=== PATIENT | female | born 2000 | race American Indian/Alaskan Native ===

== ENCOUNTER 2019-10-20 00:24 | Emergency (ER) | payer SELFPAY ==
[2019-10-20] MEDS ORDERED: Sodium Chloride 0.9% 1,000 ML IV SCH (00:30)
[2019-10-20] MEDS ORDERED: Ondansetron 4 MG/2 ML SDV IVPUSH ONE (00:38)
--- NOTE | 2019-10-20 00:54 | EDM.PDOCBH ---
ED HPI GENERAL MEDICAL PROBLEM - General Chief Complaint: Drug or Alcohol Abuse Stated Complaint: TL AMBULANCE Time Seen by Provider: 10/20/19 00:25 Source of Information: Reports: Patient, EMS, Family (Mother), Police ([place] [employer]) History Limitations: Reports: Uncooperative (The patient is reluctant to answer questions) - History of Present Illness INITIAL COMMENTS - FREE TEXT/NARRATIVE: Ms. Barrios is a 19-year-old woman with no chronic medical problems and no past surgical history, who is brought in by EMS after they were called due to a being unresponsive in a car. It turns out that the patient and her mother were driving from [place] to [place]. They stopped in [place] to get gas, and the patient's mother tells me that they were talking while the patient ate popcorn. A [place] miles east of [place], the patient stopped talking, her head went forward, and she dropped the popcorn. The patient's mother was unable to get the patient to wake up. She attempted sternal rubs and pressing on the patient's chest, to no avail. She then pulled into a gas station on the east side of [place], where she attempted to perform chest compressions on her daughter, who is still seated upright. Another person at the gas station called 911. The police responded first, finding the patient unresponsive in the car. They tell me that her lips were blue, and she had virtually no palpable pulse. They gave a intranasal Narcan 4 mg, which improved her pulse slightly. A second intranasal Narcan 4 mg was given, which improved her pulse even further. The patient was then pulled out of the car and laid on the ground, and a third intranasal dose of Narcan was given. The community relations police lieutenant told me that about 30 seconds after the third dose, the patient woke up, and had a bounding pulse. EMS told me that the patient was already awake by the time they arrived. They established an IV, but did not give any medications en route to the ED. she remained awake. Here in the ED, the patient's initial BP is found to be elevated at 152/91, otherwise, she is hemodynamically stable, afebrile, saturating 100% on room air. The patient's mother tells me that the patient has no history of drug abuse. The patient acknowledged that she took a "Perc", 30 mg, likely around the time that they stopped in [employer]. The patient acknowledges that she has taken Perc in the past, but denies ever having overdosed previously. She also denies taking anything else tonight, such as other drugs or alcohol. Other than tonight's event, the patient denies recent fever, chills, sore throat, ear pain, nasal or sinus congestion, cough, dyspnea, chest pain, palpitations, nausea, vomiting, constipation, diarrhea, abdominal pain, urinary symptoms, recent weight gain or weight loss, recent bloody bowel movements or black bowel movements, recent joint aches, headaches, or rashes. The patient does not have a PCP. - Related Data Allergies Allergy/AdvReac Type Severity Reaction Status Date / Time No Known Allergies Allergy Verified 10/20/19 00:31 Home Meds: Home Meds . [No Known Home Meds] 10/20/19 [History] Past Medical History - Past Health History Medical/Surgical History: Denies Medical/Surgical History Social & Family History - Tobacco Use Smoking Status *Q: Current Some Day Smoker - Caffeine Use Caffeine Use: Reports: None - Alcohol Use Alcohol Use History: Yes Alcohol Use Frequency: Socially - Recreational Drug Use Recreational Drug Use: Yes Drug Use in Last 12 Months: Yes Recreational Drug Type: Reports: Oxycodone - Living Situation & Occupation Living situation: Reports: Single, Alone Occupation: Employed ([employer]) ED ROS GENERAL - Review of Systems Review Of Systems: Comprehensive ROS is negative, except as noted in HPI. ED EXAM, BEHAVIORAL HEALTH - Physical Exam Exam: See Below Exam Limited By: No Limitations General Appearance: Alert, WD/WN, No Apparent Distress Eye Exam: Bilateral Eye: EOMI, Normal Inspection, PERRL Ears: Normal External Exam, Hearing Grossly Normal Nose: Normal Inspection Throat/Mouth: Normal Inspection, Normal Lips, Normal Voice, No Airway Compromise Head: Atraumatic, Normocephalic Neck: Normal Inspection, Full Range of Motion Respiratory/Chest: No Respiratory Distress, Lungs Clear, Normal Breath Sounds, No Accessory Muscle Use Cardiovascular: Normal Peripheral Pulses, Regular Rate, Rhythm, No Edema, No Gallop, No JVD, No Murmur, No Rub GI/Abdominal: Normal Bowel Sounds, Soft, Non-Tender, No Organomegaly, No Distention, No Abnormal Bruit, No Mass (Female) Exam: Deferred Rectal (Female) Exam: Deferred Back Exam: Normal Inspection, Full Range of Motion, NT Extremities: Normal Inspection, Normal Range of Motion, No Pedal Edema, Normal Capillary Refill Neurological: Alert, Normal Cognition, No Motor/Sensory Deficits, Oriented x 3 Psychiatric: Flat Affect Skin Exam: Warm, Dry, Intact, Normal color, No rash COURSE, BEHAVIORAL HEALTH COMP - Course Vital Signs: Last Vital Signs Temp 36.7 C 10/20/19 00:28 Pulse 99 10/20/19 00:28 Resp 16 10/20/19 00:28 BP 152/91 H 10/20/19 00:28 Pulse Ox 100 10/20/19 00:28 Orders, Labs, Meds: Active Orders 24 hr Category Date Time Status Sodium Chloride 0.9% [Normal Saline] 1,000 ml Med 10/20/19 00:30 Active IV ASDIRECTED Medication Orders Sodium Chloride (Normal Saline) 1,000 mls @ 150 mls/hr IV ASDIRECTED CITLALI Last Admin: 10/20/19 00:37 Dose: 150 mls/hr Documented by: BIANCA Laboratory Tests 10/20/19 10/20/19 10/20/19 Range/Units 00:47 02:48 02:48 Urine HCG, Qual Negative (NEGATIVE) Urine Opiates Screen Negative (JXPVRH=927) Ur Buprenorphine Scrn Negative (CUTOFF=10) Ur Oxycodone Screen Negative (IZA1NG=176) Urine Methadone Screen Negative (GVIEOD=258) Ur Propoxyphene Screen Negative (NTLEYI=968) Ur Barbiturates Screen Negative (TVYOZT=607) Ur Tricyclics Screen Negative (LWQNGQ=630) Ur Phencyclidine Scrn Negative (CUTOFF=25) Ur Amphetamine Screen Negative (POYBXM=895) U Methamphetamines Scrn Negative (NAVSLQ=196) U Benzodiazepines Scrn Negative (IXVIAU=492) U Cocaine Metab Screen Negative (ADWBHH=838) U Marijuana (THC) Screen Presumptive positive H (CUTOFF=50) Ethyl Alcohol 0.00 (0.00) gm% Medications Generic Name Dose Route Start Last Admin Trade Name Freq PRN Reason Stop Dose Admin Sodium Chloride 1,000 mls @ 150 mls/hr 10/20/19 00:30 10/20/19 00:37 Normal Saline IV 150 mls/hr ASDIRECTED [facility] Administration Discontinued Medications Generic Name Dose Route Start Last Admin Trade Name Freq PRN Reason Stop Dose Admin Ondansetron HCl 4 mg 10/20/19 00:38 10/20/19 00:48 Zofran IVPUSH 10/20/19 00:39 4 mg ONETIME ONE Administration Medical Clearance: 10/20/19 00:48 As above, the patient became unresponsive while she and her mother were driving from [place] towards [facility]. She regained consciousness after the police gave her 3 doses of intranasal Narcan, 4 mg each, and she has remained alert since. She tells me that she took a "Perc 30", which is a street name for Percocet, however, Percocet does not come in 30 mg doses. It does, however, come in 10 mg doses, which means that she may have taken 3 tablets at one time. She was vague in her answer, but likely took them around the time that she and her mother were in [place]. I have ordered a work-up that includes a urine test, a urine drug screen, and an EtOH level. As the patient has not been ill recently, I do not see the need for an extensive work-up. In the meantime, the patient will be given IV fluid and IV Zofran. I explained to both the patient and her mother that we will need to keep an eye on her for several hours, because the Narcan that she was given by the police has a half-life that is shorter than the oxycodone in the Percocet, and it is therefore possible that she could lapse back into unconsciousness when the Narcan wears off. Both she and her mother appear to understand. 10/20/19 03:35 The patient's EtOH level is 0.00. Her urine drug screen is positive for marijuana only. Her urine test is negative. The patient has been in the ER for over 3 hours, and has remained alert. She is more cooperative than earlier. She states that she was not really sure about the street term for "Perc", and that it could have been called Oxy. She states that she took only 1 tablet, and that it was 30 mg, therefore it must of been a 30 mg tablet of OxyContin. I believe she can safely be discharged home. Departure - Departure Time of Disposition: 03:39 Disposition: Home, Self-Care 01 Condition: Good Clinical Impression: Opioid overdose, Marijuana use - Discharge Information *PRESCRIPTION DRUG MONITORING PROGRAM REVIEWED*: Not Applicable *COPY OF PRESCRIPTION DRUG MONITORING REPORT IN PATIENT MEGAN: Not Applicable Referrals: PCP,None [Primary Care Provider] - Additional Instructions: You were seen in the emergency room after you stopped breathing after taking 30 mg of OxyContin. You were revived after the police give you 3 treatments of intranasal Narcan. Work-up in the ER included an alcohol level, a urine drug screen, and a urine test. Your urine drug screen was positive for marijuana. You were observed in the ER long enough to be confident that you will not suffer another adverse reaction from the OxyContin you took earlier, however, it is imperative that you stop this sort of behavior before it becomes addictive. To be clear, you very nearly tonight. If you have difficulty in stopping on your own, we strongly recommend that you seek professional help. If any other problems, please do not hesitate to return to the ER. Sepsis Event Note (ED) - Evaluation Sepsis Screening Result: No Definite Risk - Focused Exam Vital Signs: Vital Signs Temp Pulse Resp BP Pulse Ox 10/20/19 00:28 36.7 C 99 16 152/91 H 100 - My Orders Last 24 Hours: My Active Orders 10/20/19 00:30 Sodium Chloride 0.9% [Normal Saline] 1,000 ml IV ASDIRECTED - Assessment/Plan Last 24 Hours: My Active Orders 10/20/19 00:30 Sodium Chloride 0.9% [Normal Saline] 1,000 ml IV ASDIRECTED
== END 2019-10-20 03:52 | disposition home or self-care (01) ==
LOC: JD.ED 00:24
DX: T40.2X1A Poisoning by other opioids, accidental (unintentional), initial encounter (principal); F12.90 Cannabis use, unspecified, uncomplicated; F17.200 Nicotine dependence, unspecified, uncomplicated
CPT/HCPCS: 36415; 80306; 80307; 81025; 96374; 99284; J2405; J7030; 99283